=== PATIENT | male | born 1970 | race Caucasian/White ===

== ENCOUNTER 2017-05-02 12:11 | Emergency (ER) | payer BC, OTHER ==
[~2017-05-02] VITALS: Ht 190.5 cm; Wt 199.2 kg
[~2017-05-02 12:11] MED LIST: GEMF600T3 PO; HYDR-3138 PO; LISI-167 PO; METO25TA91 PO
[2017-05-02] MEDS ORDERED: SODIUM CHLORIDE FLUSH 10ML SYR IVF ONE (13:00)
[2017-05-02 13:04] LABS: BLOOD UREA NITROGEN 7 mg/dL (7-18)
[2017-05-02 13:09] LABS: IS PT STATUS REG ER OR PRE ER? YES
[2017-05-02] MEDS ORDERED: PIPERACILLIN/TAZO/PMX 3.375GM 50 ML ONE (14:55)
[2017-05-02] MEDS ORDERED: PIPERACILLIN/TAZO/PMX 3.375GM 50 ML IVPB ONE (15:00)
[2017-05-02 16:47] VITALS: BP 139/76
== END 2017-05-02 16:50 | disposition home or self-care (01) ==
LOC: ED 16:35
DX: L03.115 Cellulitis of right lower limb (principal); I50.9 Heart failure, unspecified; I48.92 Unspecified atrial flutter; E66.01 Morbid (severe) obesity due to excess calories
CPT/HCPCS: 36415; 71010; 80048; 82040; 83605; 83880; 84145; 84484; 85025; 87040; 93005; 93971; 96365; 99285; J2543

== ENCOUNTER 2017-08-27 14:52 | Emergency (ER) | payer OTHER ==
[~2017-08-27] VITALS: Ht 190.5 cm; Wt 185.0 kg
[~2017-08-27 14:52] MED LIST changes: -HYDR-3138 PO; +HYDR-3237 PO
[2017-08-27] MEDS ORDERED: SODIUM CHLORIDE 0.9% 1,000 ML IV ONE (15:36)
[2017-08-27] MEDS ORDERED: ONDANSETRON 2MG/ML, 2ML ONE (15:44)
[2017-08-27] MEDS ORDERED: HYDROmorphone 1 MG/ML, 1ML ONE ×2 (15:44→16:17)
[2017-08-27] MEDS: HYDROmorphone 1 MG/ML, 1ML IVPush PRN ×2 (15:50→16:21)
[2017-08-27] MEDS ORDERED: SODIUM CHLORIDE 0.9% 1,000ML IVBOLUS ONE (16:00)
[2017-08-27] MEDS ORDERED: ONDANSETRON 2MG/ML, 2ML IVPush ONE (16:00)
[2017-08-27] MEDS ORDERED: SODIUM CHLORIDE FLUSH 10ML SYR IVF ONE (16:00)
[2017-08-27 16:07] LABS: HEMATOCRIT 45.9 % (39.2-51.8); HEMOGLOBIN 15.9 g/dL (13.7-18.0); WHITE BLOOD COUNT 12.3 x10^3/uL (3.4-10)
[2017-08-27 16:20] LABS: ASPARTATE AMINO TRANSFERASE 22 U/L (15-37); BLOOD UREA NITROGEN 15 mg/dL (7-18)
[2017-08-27] MEDS ORDERED: LORazepam 1MG TABLET PO ONE (17:00)
[2017-08-27 18:53] VITALS: BP 143/58
== END 2017-08-27 18:55 | disposition home or self-care (01) ==
LOC: ED 18:12
DX: N20.2 Calculus of kidney with calculus of ureter (principal); R31.9 Hematuria, unspecified; I50.9 Heart failure, unspecified; E66.01 Morbid (severe) obesity due to excess calories
CPT/HCPCS: 36415; 74176; 80053; 81001; 83690; 84484; 85025; 93005; 96361; 96374; 96375; 96376; 99285; J1170; J2405; J7030

== ENCOUNTER 2021-05-30 23:16 | Inpatient (IN) | payer BC, OTHER ==
[~2021-05-30] VITALS: Ht 190.5 cm; Wt 161.1 kg
[~2021-05-30 23:16] MED LIST changes: +GEMF-31 PO; -GEMF600T3 PO
[2021-05-31 00:31] LABS: BASOPHILS % (AUTO) 0 % (0-1); EOSINOPHILS % (AUTO) 0 % (1-7); LYMPHOCYTES % (AUTO) 18 % (22-44); MEAN CORPUSCULAR HEMOGLOBIN 30.3 pg (27.5-34.5); MEAN CORPUSCULAR HGB CONC 35.7 g/dL (33.2-36.2); MEAN PLATELET VOLUME 8.7 fL (7.4-10.4); MONOCYTES % (AUTO) 9 % (2-9); NEUTROPHILS % (AUTO) 73 % (42-75); PLATELET COUNT 179 x10^3/uL (130-400); RED BLOOD COUNT 5.17 x10^6/uL (4.38-5.82); RED CELL DISTRIBUTION WIDTH 12.7 % (9.4-14.8)
[2021-05-31 01:17] LABS: ALBUMIN 2.9 g/dL (3.4-5.0); ANION GAP 10 mmol/L (5-15); CALCIUM 8.4 mg/dL (8.5-10.1); CHLORIDE 91 mmol/L (98-107); CREATININE 0.99 mg/dL (0.7-1.3)
[2021-05-31 01:21] LABS: TROPONIN I < 0.015 ng/mL (0.000-0.045)
[2021-05-31 02:55] VITALS: BP 128/77
[2021-05-31] MEDS ORDERED: METF10007 PO (03:55)
[2021-05-31] MEDS ORDERED: ONDANSETRON 2MG/ML, 2ML IVPush PRN (04:30)
[2021-05-31] MEDS ORDERED: PHARMACY MAY ADJ FOR RENAL FX MC PRN ×2 (04:30)
[2021-05-31] MEDS: ENOXAPARIN 100 MG/ML SQ SCH ×2 (06:13→16:55)
[2021-05-31] MEDS: ENOXAPARIN 80 MG/0.8 ML SQ SCH ×2 (06:13→16:56)
[2021-05-31 06:14] LABS: HCT (SEDRATE) 41.4 % (39.2-51.8)
[2021-05-31] MEDS: CEFTRIAXONE 1,000 MG in DEXTROSE 5% 50 ML IVPB SCH (06:14)
[2021-05-31 06:18] LABS: BASOPHILS % (AUTO) 0 % (0-1); EOSINOPHILS % (AUTO) 0 % (1-7); LYMPHOCYTES % (AUTO) 21 % (22-44); MEAN CORPUSCULAR HEMOGLOBIN 30.4 pg (27.5-34.5); MEAN CORPUSCULAR HGB CONC 36.2 g/dL (33.2-36.2); MEAN PLATELET VOLUME 8.8 fL (7.4-10.4); MONOCYTES % (AUTO) 9 % (2-9); NEUTROPHILS % (AUTO) 70 % (42-75); PLATELET COUNT 173 x10^3/uL (130-400); RED BLOOD COUNT 4.88 x10^6/uL (4.38-5.82); RED CELL DISTRIBUTION WIDTH 13.1 % (9.4-14.8)
[2021-05-31] MEDS: ACETAMINOPHEN 325 MG TABLET PO PRN (06:20)
[2021-05-31 06:28] LABS: D-DIMER 0.75 ug/mlFEU (0.00-0.52)
[2021-05-31] MEDS: AZITHROMYCIN 500 MG in SODIUM CHLORIDE 0.9% 250 ML IV SCH (07:58)
[2021-05-31] MEDS: ASCORBIC ACID 500 MG TABLET PO SCH ×2 (07:58→21:16)
[2021-05-31] MEDS: ALBUTEROL-IPRATROPIUM MDI INH INH SCH ×4 (08:00→21:00)
[2021-05-31 08:02] VITALS: BP 108/66
[2021-05-31] MEDS ORDERED: ASCORBIC ACID 500 MG TABLET PO SCH (09:00)
[2021-05-31 11:40] LABS: ALANINE AMINOTRANSFERASE 48 U/L (12-78); ALBUMIN 2.7 g/dL (3.4-5.0); ANION GAP 11 mmol/L (5-15); CALCIUM 8.2 mg/dL (8.5-10.1); CHLORIDE 94 mmol/L (98-107)
[2021-05-31 11:43] LABS: ALKALINE PHOSPHATASE 41 U/L (45-117); BILIRUBIN,TOTAL 0.8 mg/dL (0.2-1.0); CREATININE 0.82 mg/dL (0.7-1.3); TOTAL PROTEIN 7.7 g/dL (6.4-8.2)
[2021-05-31] MEDS ORDERED: POTASSIUM CHLORIDE 20 MEQ TAB.ER.PRT PO ONE (12:30)
[2021-05-31] MEDS: DEXAMETHASONE 4 MG/ML, 1ML IVPush SCH (12:33)
[2021-05-31] MEDS ORDERED: REMDESIVIR 200 MG in SODIUM CHLORIDE 0.9% 250 ML IVPB ONE (14:00)
[2021-05-31 14:35] VITALS: BP 128/70
[2021-05-31] MEDS: MELATONIN 5 MG TABLET PO PRN (21:16)
[2021-05-31 21:20] VITALS: BP 123/76
[2021-05-31] MEDS: INSULIN LISPRO 100 UNITS/ML, PEN SQ-INSULIN SCH (22:51)
[2021-06-01 01:05] VITALS: BP 118/67
[2021-06-01] MEDS: ENOXAPARIN 80 MG/0.8 ML SQ SCH ×2 (05:00→16:11)
[2021-06-01] MEDS: ENOXAPARIN 100 MG/ML SQ SCH ×2 (05:00→16:11)
[2021-06-01 06:01] LABS: HCT (SEDRATE) 42.1 % (39.2-51.8)
[2021-06-01] MEDS: ALBUTEROL-IPRATROPIUM MDI INH INH SCH ×4 (06:06→21:00)
[2021-06-01] MEDS: CEFTRIAXONE 1,000 MG in DEXTROSE 5% 50 ML IVPB SCH (06:06)
[2021-06-01] MEDS: GUAIFENESIN/DM 200-20MG, 10ML UDC PO PRN (06:10)
[2021-06-01 06:26] LABS: ALANINE AMINOTRANSFERASE 44 U/L (12-78); ALBUMIN 2.5 g/dL (3.4-5.0); ANION GAP 7 mmol/L (5-15); CHLORIDE 95 mmol/L (98-107)
[2021-06-01 06:43] LABS: ALKALINE PHOSPHATASE 43 U/L (45-117); BILIRUBIN,TOTAL 0.7 mg/dL (0.2-1.0); CALCIUM 8.6 mg/dL (8.5-10.1); CHOL/HDL RATIO 2.4; CHOLESTEROL, TOTAL 97 mg/dL (140-239); CREATININE 0.93 mg/dL (0.7-1.3); HDL CHOL % 41 % (26-37); HDL CHOLESTEROL (DIRECT) 40 mg/dL (40-60); LDL CHOLESTEROL,CALCULATED 42 mg/dL (54-169); LDL/HDL RATIO 1.1 (0.5-3.0); TOTAL PROTEIN 7.7 g/dL (6.4-8.2); TRIGLYCERIDES 73 mg/dL (50-200); VLDL CHOLESTEROL 15 mg/dL (0-25)
[2021-06-01 07:41] VITALS: BP 117/74
[2021-06-01] MEDS: AZITHROMYCIN 500 MG in SODIUM CHLORIDE 0.9% 250 ML IV SCH (07:42)
[2021-06-01] MEDS: DEXAMETHASONE 4 MG/ML, 1ML IVPush SCH (07:42)
[2021-06-01] MEDS: ASCORBIC ACID 500 MG TABLET PO SCH ×2 (07:42→21:35)
[2021-06-01] MEDS: INSULIN LISPRO 100 UNITS/ML, PEN SQ-INSULIN SCH ×4 (07:45→21:56)
[2021-06-01] MEDS ORDERED: INSULIN LISPRO 100 UNITS/ML, PEN SQ-INSULIN SCH (12:30)
[2021-06-01 13:53] VITALS: BP 127/72
[2021-06-01] MEDS: REMDESIVIR 100 MG in SODIUM CHLORIDE 0.9% 250 ML IVPB SCH (14:38)
[2021-06-01 21:29] VITALS: BP 119/80
[2021-06-01] MEDS: MELATONIN 5 MG TABLET PO PRN (21:36)
[2021-06-02 01:26] VITALS: BP 102/67
[2021-06-02] MEDS: ENOXAPARIN 80 MG/0.8 ML SQ SCH ×2 (04:22→16:56)
[2021-06-02] MEDS: ENOXAPARIN 100 MG/ML SQ SCH ×2 (04:22→16:56)
[2021-06-02] MEDS: GUAIFENESIN/DM 200-20MG, 10ML UDC PO PRN ×2 (04:32→20:48)
[2021-06-02 05:36] LABS: HCT (SEDRATE) 43.6 % (39.2-51.8)
[2021-06-02 05:47] LABS: CHLORIDE 95 mmol/L (98-107)
[2021-06-02 05:50] LABS: BASOPHILS % (AUTO) 0 % (0-1); EOSINOPHILS % (AUTO) 0 % (1-7); LYMPHOCYTES % (AUTO) 8 % (22-44); MEAN CORPUSCULAR HEMOGLOBIN 30.2 pg (27.5-34.5); MEAN CORPUSCULAR HGB CONC 35.5 g/dL (33.2-36.2); MEAN PLATELET VOLUME 8.9 fL (7.4-10.4); MONOCYTES % (AUTO) 10 % (2-9); NEUTROPHILS % (AUTO) 82 % (42-75); PLATELET COUNT 246 x10^3/uL (130-400); RED BLOOD COUNT 5.12 x10^6/uL (4.38-5.82); RED CELL DISTRIBUTION WIDTH 13.5 % (9.4-14.8)
[2021-06-02 05:59] LABS: ALANINE AMINOTRANSFERASE 40 U/L (12-78); ALBUMIN 2.3 g/dL (3.4-5.0); ALKALINE PHOSPHATASE 42 U/L (45-117); ANION GAP 6 mmol/L (5-15); BILIRUBIN,TOTAL 0.7 mg/dL (0.2-1.0); CALCIUM 8.5 mg/dL (8.5-10.1); CREATININE 0.85 mg/dL (0.7-1.3); TOTAL PROTEIN 7.6 g/dL (6.4-8.2)
[2021-06-02] MEDS: CEFTRIAXONE 1,000 MG in DEXTROSE 5% 50 ML IVPB SCH (06:14)
[2021-06-02] MEDS: ALBUTEROL-IPRATROPIUM MDI INH INH SCH ×4 (06:15→20:34)
[2021-06-02] MEDS: AZITHROMYCIN 500 MG in SODIUM CHLORIDE 0.9% 250 ML IV SCH (07:52)
[2021-06-02] MEDS: ASCORBIC ACID 500 MG TABLET PO SCH ×2 (07:52→20:34)
[2021-06-02] MEDS: DEXAMETHASONE 4 MG/ML, 1ML IVPush SCH (07:53)
[2021-06-02] MEDS: INSULIN LISPRO 100 UNITS/ML, PEN SQ-INSULIN SCH ×4 (07:55→20:49)
[2021-06-02] MEDS: INSULIN GLARGINE 100 UNITS/ML, PEN SQ-INSULIN SCH ×2 (09:39→20:50)
[2021-06-02 09:49] VITALS: BP 106/67
[2021-06-02 14:21] LABS: ANION GAP 6 mmol/L (5-15); CALCIUM 8.7 mg/dL (8.5-10.1); CHLORIDE 94 mmol/L (98-107)
[2021-06-02] MEDS: REMDESIVIR 100 MG in SODIUM CHLORIDE 0.9% 250 ML IVPB SCH (14:28)
[2021-06-02 14:30] VITALS: BP 124/76
[2021-06-02] MEDS ORDERED: RIVAROXABAN 15 MG TABLET PO SCH (18:00)
[2021-06-02] MEDS ORDERED: RIVAROXABAN 20 MG TABLET PO SCH (18:01)
[2021-06-02] MEDS: RIVAROXABAN 20 MG TABLET PO SCH (18:21)
[2021-06-02 19:17] VITALS: BP 124/79
[2021-06-02] MEDS: MELATONIN 5 MG TABLET PO PRN (20:48)
[2021-06-03 01:20] VITALS: BP 122/60
[2021-06-03 05:55] LABS: HCT (SEDRATE) 44.6 % (39.2-51.8)
[2021-06-03] MEDS: ALBUTEROL-IPRATROPIUM MDI INH INH SCH ×4 (06:00→20:44)
[2021-06-03] MEDS: CEFTRIAXONE 1,000 MG in DEXTROSE 5% 50 ML IVPB SCH (06:05)
[2021-06-03 06:14] LABS: CALCIUM 8.6 mg/dL (8.5-10.1); CHLORIDE 100 mmol/L (98-107)
[2021-06-03 06:26] LABS: ALANINE AMINOTRANSFERASE 38 U/L (12-78); ALBUMIN 2.3 g/dL (3.4-5.0); ALKALINE PHOSPHATASE 47 U/L (45-117); ANION GAP 6 mmol/L (5-15); BILIRUBIN,TOTAL 0.7 mg/dL (0.2-1.0); CREATININE 0.77 mg/dL (0.7-1.3); TOTAL PROTEIN 7.4 g/dL (6.4-8.2)
[2021-06-03] MEDS: AZITHROMYCIN 500 MG in SODIUM CHLORIDE 0.9% 250 ML IV SCH (06:40)
[2021-06-03 07:08] VITALS: BP 117/75
[2021-06-03 08:05] VITALS: BP 132/83
[2021-06-03] MEDS: INSULIN GLARGINE 100 UNITS/ML, PEN SQ-INSULIN SCH ×2 (08:19→20:43)
[2021-06-03] MEDS: INSULIN LISPRO 100 UNITS/ML, PEN SQ-INSULIN SCH ×4 (08:19→20:43)
[2021-06-03] MEDS: ASCORBIC ACID 500 MG TABLET PO SCH ×2 (08:20→20:41)
[2021-06-03] MEDS: DEXAMETHASONE 4 MG/ML, 1ML IVPush SCH (08:20)
[2021-06-03] MEDS ORDERED: FUROSEMIDE 20 MG/2 ML IV ONE (10:28)
[2021-06-03] MEDS: POTASSIUM CHLORIDE 20 MEQ TAB.ER.PRT PO SCH (12:16)
[2021-06-03 13:35] VITALS: BP 131/84
[2021-06-03] MEDS: REMDESIVIR 100 MG in SODIUM CHLORIDE 0.9% 250 ML IVPB SCH (14:01)
[2021-06-03] MEDS: FUROSEMIDE 20 MG/2 ML IV SCH (16:47)
[2021-06-03] MEDS: RIVAROXABAN 20 MG TABLET PO SCH (16:47)
[2021-06-03 20:31] VITALS: BP 132/78
[2021-06-03] MEDS: MELATONIN 5 MG TABLET PO PRN (20:42)
[2021-06-03] MEDS: GUAIFENESIN/DM 200-20MG, 10ML UDC PO PRN (20:42)
[2021-06-04 01:33] VITALS: BP 129/77
[2021-06-04 04:31] VITALS: BP 138/85
[2021-06-04] MEDS ORDERED: NITROGLYCERIN 0.4 MG BOTTLE (25 TABS) SL ONE (05:30)
[2021-06-04] MEDS ORDERED: MORPHINE SULFATE 4 MG/ML, 1ML IVPush ONE (05:30)
[2021-06-04] MEDS: ALBUTEROL-IPRATROPIUM MDI INH INH SCH ×4 (06:00→21:50)
[2021-06-04 06:14] LABS: HCT (SEDRATE) 45.2 % (39.2-51.8)
[2021-06-04 06:29] LABS: ALBUMIN 2.5 g/dL (3.4-5.0); ANION GAP 6 mmol/L (5-15); CALCIUM 8.7 mg/dL (8.5-10.1); CHLORIDE 100 mmol/L (98-107)
[2021-06-04] MEDS: CEFTRIAXONE 1,000 MG in DEXTROSE 5% 50 ML IVPB SCH (06:34)
[2021-06-04 06:41] LABS: ALANINE AMINOTRANSFERASE 37 U/L (12-78); ALKALINE PHOSPHATASE 57 U/L (45-117); CREATININE 0.81 mg/dL (0.7-1.3); TOTAL PROTEIN 7.7 g/dL (6.4-8.2)
[2021-06-04] MEDS: INSULIN LISPRO 100 UNITS/ML, PEN SQ-INSULIN SCH ×4 (07:00→21:52)
[2021-06-04] MEDS ORDERED: ATORVASTATIN 80 MG TABLET PO ONE (07:28)
[2021-06-04] MEDS ORDERED: MIDAZOLAM 1 MG/ML, 5ML ONE (07:43)
[2021-06-04] MEDS ORDERED: LIDOCAINE-MPF 1%, 5ML ONE (07:44)
[2021-06-04] MEDS ORDERED: BIVALIRUDIN 250 MG ONE (07:44)
[2021-06-04] MEDS ORDERED: TICAGRELOR 90 MG TABLET ONE (07:44)
[2021-06-04] MEDS ORDERED: NITROGLYCERIN 5 MG/ML, 10ML ONE (07:44)
[2021-06-04] MEDS ORDERED: VERAPAMIL 2.5 MG/ML, 2ML ONE (07:44)
[2021-06-04] MEDS ORDERED: FENTANYL PF 100 MCG/2ML ONE ×2 (07:44→10:38)
[2021-06-04] MEDS ORDERED: HEPARIN 1,000 UNITS/ML, 10ML ONE (07:44)
[2021-06-04 07:56] VITALS: BP 127/78
[2021-06-04] MEDS ORDERED: ALTEPLASE IV ONE (08:30)
[2021-06-04] MEDS: ASCORBIC ACID 500 MG TABLET PO SCH ×2 (09:00→21:57)
[2021-06-04] MEDS ORDERED: HEPARIN 25,000 UNITS/250ML PMX 250 ML IV PRN (09:00)
[2021-06-04] MEDS ORDERED: HEPARIN 5,000 UNITS/ML, 1ML IV ONE ×2 (09:00)
[2021-06-04] MEDS ORDERED: HEPARIN 5,000 UNITS/ML, 1ML IV PRN (09:00)
[2021-06-04] MEDS: ALTEPLASE IV PRN ×2 (09:28→09:30)
[2021-06-04] MEDS: AZITHROMYCIN 500 MG in SODIUM CHLORIDE 0.9% 250 ML IV SCH (10:57)
[2021-06-04] MEDS: PHENYLEPHRINE NASAL 1%, 15ML SPRAY NAS SCH ×2 (10:58→14:27)
[2021-06-04] MEDS ORDERED: FENTANYL PF 100 MCG/2ML IVPush ONE (11:00)
[2021-06-04] MEDS: INSULIN GLARGINE 100 UNITS/ML, PEN SQ-INSULIN SCH ×2 (11:05→21:52)
[2021-06-04] MEDS: DEXAMETHASONE 4 MG/ML, 1ML IVPush SCH (11:11)
[2021-06-04] MEDS: POTASSIUM CHLORIDE 20 MEQ TAB.ER.PRT PO SCH (11:11)
[2021-06-04] MEDS: FUROSEMIDE 20 MG/2 ML IV SCH (11:11)
[2021-06-04] MEDS: REMDESIVIR 100 MG in SODIUM CHLORIDE 0.9% 250 ML IVPB SCH (12:18)
[2021-06-04] MEDS ORDERED: CEFTRIAXONE 1,000 MG in DEXTROSE 5% 50 ML IVPB ONE (12:30)
[2021-06-04] MEDS: CHOLECALCIFEROL 1,000 UNIT TABLET PO SCH (14:46)
[2021-06-04] MEDS: ZINC SULFATE 220 MG CAPSULE PO SCH (14:46)
[2021-06-04] MEDS ORDERED: FUROSEMIDE 20 MG/2 ML IV SCH (17:00)
[2021-06-04] MEDS ORDERED: PHENYLEPHRINE NASAL 1%, 15ML SPRAY NAS PRN (21:00)
[2021-06-04] MEDS: FUROSEMIDE 40 MG/4 ML IV SCH (21:50)
[2021-06-04] MEDS: FENTANYL PF 100 MCG/2ML IVPush PRN (21:56)
[2021-06-04] MEDS: THIAMINE 100MG TABLET PO SCH (21:57)
[2021-06-04] MEDS: ATORVASTATIN 80 MG TABLET PO SCH (21:57)
[2021-06-04] MEDS: MELATONIN 5 MG TABLET PO PRN (21:57)
[2021-06-05] MEDS: GUAIFENESIN/DM 200-20MG, 10ML UDC PO PRN (01:25)
[2021-06-05] MEDS: FENTANYL PF 100 MCG/2ML IVPush PRN ×2 (01:26→05:50)
[2021-06-05 04:50] LABS: BASOPHILS % (AUTO) 0 % (0-1); EOSINOPHILS % (AUTO) 0 % (1-7); LYMPHOCYTES % (AUTO) 7 % (22-44); MEAN CORPUSCULAR HEMOGLOBIN 29.7 pg (27.5-34.5); MEAN CORPUSCULAR HGB CONC 34.4 g/dL (33.2-36.2); MEAN PLATELET VOLUME 7.7 fL (7.4-10.4); MONOCYTES % (AUTO) 8 % (2-9); NEUTROPHILS % (AUTO) 85 % (42-75); PLATELET COUNT 176 x10^3/uL (130-400); RED BLOOD COUNT 5.21 x10^6/uL (4.38-5.82); RED CELL DISTRIBUTION WIDTH 13.5 % (9.4-14.8)
[2021-06-05 04:57] LABS: ALANINE AMINOTRANSFERASE 33 U/L (12-78); ALBUMIN 2.4 g/dL (3.4-5.0); ANION GAP 8 mmol/L (5-15); CALCIUM 8.8 mg/dL (8.5-10.1); CHLORIDE 101 mmol/L (98-107); CREATININE 0.64 mg/dL (0.7-1.3)
[2021-06-05 05:01] LABS: ALKALINE PHOSPHATASE 56 U/L (45-117); BILIRUBIN,TOTAL 0.8 mg/dL (0.2-1.0)
[2021-06-05] MEDS: AZITHROMYCIN 500 MG in SODIUM CHLORIDE 0.9% 250 ML IV SCH (05:47)
[2021-06-05] MEDS: ALBUTEROL-IPRATROPIUM MDI INH INH SCH ×4 (05:47→21:03)
[2021-06-05] MEDS: ASPIRIN 81 MG TABLET EC PO SCH (05:49)
[2021-06-05] MEDS: INSULIN LISPRO 100 UNITS/ML, PEN SQ-INSULIN SCH ×4 (05:51→21:04)
[2021-06-05] MEDS: INSULIN GLARGINE 100 UNITS/ML, PEN SQ-INSULIN SCH ×2 (09:02→21:05)
[2021-06-05] MEDS: DEXAMETHASONE 4 MG/ML, 1ML IVPush SCH (09:03)
[2021-06-05] MEDS: FUROSEMIDE 40 MG/4 ML IV SCH ×2 (09:03→21:00)
[2021-06-05] MEDS: POTASSIUM CHLORIDE 20 MEQ TAB.ER.PRT PO SCH (09:03)
[2021-06-05] MEDS: CHOLECALCIFEROL 1,000 UNIT TABLET PO SCH (09:04)
[2021-06-05] MEDS: CLOPIDOGREL 75 MG TABLET PO SCH (09:04)
[2021-06-05] MEDS: THIAMINE 100MG TABLET PO SCH ×2 (09:04→21:02)
[2021-06-05] MEDS: ZINC SULFATE 220 MG CAPSULE PO SCH (09:04)
[2021-06-05] MEDS: ASCORBIC ACID 500 MG TABLET PO SCH ×2 (09:04→21:02)
[2021-06-05] MEDS ORDERED: OXYcodone IR 5MG TABLET PO PRN (10:00)
[2021-06-05] MEDS: METOPROLOL SUCCINATE 25 MG TAB.ER.24H PO SCH (12:19)
[2021-06-05] MEDS: CEFTRIAXONE 2 GM in DEXTROSE 5% 50 ML IVPB SCH (12:19)
[2021-06-05] MEDS: ATORVASTATIN 80 MG TABLET PO SCH (21:02)
[2021-06-05] MEDS: MELATONIN 5 MG TABLET PO PRN (21:10)
[2021-06-06] MEDS ORDERED: FILTER 0.22 MICRON IV PRN
[2021-06-06] MEDS ORDERED: AMIODARONE 450 MG in DEXTROSE 5% 241 ML IV PRN
[2021-06-06] MEDS ORDERED: AMIODARONE 150 MG in DEXTROSE 5% 97 ML IVPB ONE
[2021-06-06] MEDS ORDERED: SODIUM CHLORIDE 0.9%, 500ML IVBOLUS ONE (00:30)
[2021-06-06] MEDS: HEPARIN 5,000 UNITS/ML, 1ML IV PRN ×4 (00:50→23:51)
[2021-06-06] MEDS: HEPARIN 25,000 UNITS/250ML PMX 250 ML IV PRN ×2 (00:54→17:00)
[2021-06-06] MEDS: GUAIFENESIN/DM 200-20MG, 10ML UDC PO PRN (01:06)
[2021-06-06] MEDS: LORazepam 2 MG/ML, 1ML IVPush PRN ×2 (01:17→08:10)
[2021-06-06] MEDS ORDERED: DIGOXIN 0.25 MG/ML, 2ML IVPush ONE (04:30)
[2021-06-06 07:39] LABS: ANION GAP 9 mmol/L (5-15); CALCIUM 8.3 mg/dL (8.5-10.1); CHLORIDE 101 mmol/L (98-107); CREATININE 0.77 mg/dL (0.7-1.3)
[2021-06-06 07:41] LABS: BASOPHILS % (AUTO) 0 % (0-1); EOSINOPHILS % (AUTO) 1 % (1-7); LYMPHOCYTES % (AUTO) 8 % (22-44); MEAN CORPUSCULAR HEMOGLOBIN 29.2 pg (27.5-34.5); MEAN CORPUSCULAR HGB CONC 33.9 g/dL (33.2-36.2); MONOCYTES % (AUTO) 7 % (2-9); NEUTROPHILS % (AUTO) 84 % (42-75); PLATELET COUNT 203 x10^3/uL (130-400); RED BLOOD COUNT 5.27 x10^6/uL (4.38-5.82); RED CELL DISTRIBUTION WIDTH 13.4 % (9.4-14.8)
[2021-06-06] MEDS: AZITHROMYCIN 500 MG in SODIUM CHLORIDE 0.9% 250 ML IV SCH (09:21)
[2021-06-06] MEDS: CLOPIDOGREL 75 MG TABLET PO SCH (09:23)
[2021-06-06] MEDS: DEXAMETHASONE 4 MG/ML, 1ML IVPush SCH (09:23)
[2021-06-06] MEDS: THIAMINE 100MG TABLET PO SCH ×2 (09:23→20:51)
[2021-06-06] MEDS: ASCORBIC ACID 500 MG TABLET PO SCH ×2 (09:23→20:51)
[2021-06-06] MEDS: FUROSEMIDE 40 MG/4 ML IV SCH ×2 (09:23→20:51)
[2021-06-06] MEDS: ALBUTEROL-IPRATROPIUM MDI INH INH SCH ×4 (09:23→20:52)
[2021-06-06] MEDS: ASPIRIN 81 MG TABLET EC PO SCH (09:23)
[2021-06-06] MEDS: ZINC SULFATE 220 MG CAPSULE PO SCH (09:23)
[2021-06-06] MEDS: CHOLECALCIFEROL 1,000 UNIT TABLET PO SCH (09:24)
[2021-06-06] MEDS: POTASSIUM CHLORIDE 20 MEQ TAB.ER.PRT PO SCH (09:24)
[2021-06-06] MEDS: METOPROLOL SUCCINATE 25 MG TAB.ER.24H PO SCH (09:24)
[2021-06-06] MEDS: INSULIN LISPRO 100 UNITS/ML, PEN SQ-INSULIN SCH ×5 (09:26→20:54)
[2021-06-06] MEDS: INSULIN GLARGINE 100 UNITS/ML, PEN SQ-INSULIN SCH (09:27)
[2021-06-06] MEDS: LOSARTAN 25MG TABLET PO SCH (12:06)
[2021-06-06] MEDS: AMIODARONE 200 MG TABLET PO SCH ×2 (12:06→20:50)
[2021-06-06] MEDS: CEFTRIAXONE 2 GM in DEXTROSE 5% 50 ML IVPB SCH (12:06)
[2021-06-06] MEDS: ATORVASTATIN 80 MG TABLET PO SCH (20:51)
[2021-06-06] MEDS ORDERED: INSULIN GLARGINE 100 UNITS/ML, PEN SQ-INSULIN SCH (21:00)
[2021-06-06] MEDS: MELATONIN 5 MG TABLET PO PRN (21:01)
[2021-06-07] MEDS: LORazepam 2 MG/ML, 1ML IVPush PRN ×2 (00:52→22:16)
[2021-06-07] MEDS: ALBUTEROL-IPRATROPIUM MDI INH INH SCH ×4 (05:52→20:58)
[2021-06-07] MEDS: ASPIRIN 81 MG TABLET EC PO SCH (05:54)
[2021-06-07 05:58] LABS: BASOPHILS % (AUTO) 1 % (0-1); EOSINOPHILS % (AUTO) 1 % (1-7); LYMPHOCYTES % (AUTO) 7 % (22-44); MEAN CORPUSCULAR HEMOGLOBIN 29.3 pg (27.5-34.5); MEAN CORPUSCULAR HGB CONC 34.1 g/dL (33.2-36.2); MONOCYTES % (AUTO) 6 % (2-9); NEUTROPHILS % (AUTO) 85 % (42-75); PLATELET COUNT 213 x10^3/uL (130-400); RED BLOOD COUNT 4.86 x10^6/uL (4.38-5.82); RED CELL DISTRIBUTION WIDTH 13.3 % (9.4-14.8)
[2021-06-07] MEDS: METOPROLOL SUCCINATE 25 MG TAB.ER.24H PO SCH (06:00)
[2021-06-07 06:11] LABS: CHLORIDE 99 mmol/L (98-107)
[2021-06-07 06:20] LABS: ANION GAP 3 mmol/L (5-15); CALCIUM 8.5 mg/dL (8.5-10.1); CREATININE 0.77 mg/dL (0.7-1.3)
[2021-06-07] MEDS: AZITHROMYCIN 500 MG in SODIUM CHLORIDE 0.9% 250 ML IV SCH (08:56)
[2021-06-07] MEDS: CLOPIDOGREL 75 MG TABLET PO SCH (08:57)
[2021-06-07] MEDS: THIAMINE 100MG TABLET PO SCH ×2 (08:57→20:57)
[2021-06-07] MEDS: CHOLECALCIFEROL 1,000 UNIT TABLET PO SCH (08:57)
[2021-06-07] MEDS: FUROSEMIDE 40 MG/4 ML IV SCH ×2 (08:57→20:58)
[2021-06-07] MEDS: HEPARIN 25,000 UNITS/250ML PMX 250 ML IV PRN ×2 (08:57→23:12)
[2021-06-07] MEDS: DEXAMETHASONE 4 MG/ML, 1ML IVPush SCH (08:58)
[2021-06-07] MEDS: ZINC SULFATE 220 MG CAPSULE PO SCH (08:58)
[2021-06-07] MEDS: AMIODARONE 200 MG TABLET PO SCH (08:58)
[2021-06-07] MEDS: POTASSIUM CHLORIDE 20 MEQ TAB.ER.PRT PO SCH (08:58)
[2021-06-07] MEDS: LOSARTAN 25MG TABLET PO SCH (08:59)
[2021-06-07] MEDS: ASCORBIC ACID 500 MG TABLET PO SCH ×2 (09:06→20:57)
[2021-06-07] MEDS: INSULIN LISPRO 100 UNITS/ML, PEN SQ-INSULIN SCH ×7 (09:08→21:05)
[2021-06-07] MEDS: INSULIN GLARGINE 100 UNITS/ML, PEN SQ-INSULIN SCH ×2 (09:09→21:04)
[2021-06-07] MEDS: CEFTRIAXONE 2 GM in DEXTROSE 5% 50 ML IVPB SCH (11:59)
[2021-06-07] MEDS: HEPARIN 5,000 UNITS/ML, 1ML IV PRN (12:33)
[2021-06-07] MEDS ORDERED: AMIODARONE 200 MG TABLET PO SCH (13:00)
[2021-06-07] MEDS: ATORVASTATIN 80 MG TABLET PO SCH (20:57)
[2021-06-07] MEDS: MELATONIN 5 MG TABLET PO PRN (22:16)
[2021-06-08] MEDS: METOPROLOL SUCCINATE 25 MG TAB.ER.24H PO SCH (05:25)
[2021-06-08] MEDS: ASPIRIN 81 MG TABLET EC PO SCH (05:32)
[2021-06-08] MEDS: ALBUTEROL-IPRATROPIUM MDI INH INH SCH ×4 (05:32→20:20)
[2021-06-08 05:57] LABS: ANION GAP 6 mmol/L (5-15); CALCIUM 8.6 mg/dL (8.5-10.1); CHLORIDE 101 mmol/L (98-107); CREATININE 0.74 mg/dL (0.7-1.3)
[2021-06-08] MEDS: INSULIN LISPRO 100 UNITS/ML, PEN SQ-INSULIN SCH ×7 (08:27→20:22)
[2021-06-08] MEDS: FUROSEMIDE 40 MG/4 ML IV SCH ×2 (08:31→20:23)
[2021-06-08] MEDS: ASCORBIC ACID 500 MG TABLET PO SCH ×2 (08:32→20:21)
[2021-06-08] MEDS: POTASSIUM CHLORIDE 20 MEQ TAB.ER.PRT PO SCH (08:32)
[2021-06-08] MEDS: CLOPIDOGREL 75 MG TABLET PO SCH (08:32)
[2021-06-08] MEDS: ZINC SULFATE 220 MG CAPSULE PO SCH (08:32)
[2021-06-08] MEDS: DEXAMETHASONE 4 MG/ML, 1ML IVPush SCH (08:32)
[2021-06-08] MEDS: THIAMINE 100MG TABLET PO SCH ×2 (08:32→20:20)
[2021-06-08] MEDS: LOSARTAN 25MG TABLET PO SCH (08:33)
[2021-06-08] MEDS: AZITHROMYCIN 500 MG in SODIUM CHLORIDE 0.9% 250 ML IV SCH (08:34)
[2021-06-08] MEDS ORDERED: INSULIN GLARGINE 100 UNITS/ML, PEN SQ-INSULIN SCH (09:00)
[2021-06-08] MEDS: AMIODARONE 200 MG TABLET PO SCH (09:04)
[2021-06-08] MEDS: CHOLECALCIFEROL 1,000 UNIT TABLET PO SCH (11:41)
[2021-06-08] MEDS: CEFTRIAXONE 2 GM in DEXTROSE 5% 50 ML IVPB SCH (12:49)
[2021-06-08] MEDS: HEPARIN 25,000 UNITS/250ML PMX 250 ML IV PRN (16:55)
[2021-06-08] MEDS: ATORVASTATIN 80 MG TABLET PO SCH (20:20)
[2021-06-08] MEDS: INSULIN GLARGINE 100 UNITS/ML, PEN SQ-INSULIN SCH (20:22)
[2021-06-08] MEDS: MELATONIN 5 MG TABLET PO PRN (23:12)
[2021-06-08] MEDS: LORazepam 2 MG/ML, 1ML IVPush PRN (23:13)
[2021-06-09 04:52] LABS: ANION GAP 5 mmol/L (5-15); CALCIUM 8.4 mg/dL (8.5-10.1); CHLORIDE 99 mmol/L (98-107)
[2021-06-09] MEDS: HEPARIN 25,000 UNITS/250ML PMX 250 ML IV PRN (05:35)
[2021-06-09] MEDS: HEPARIN 5,000 UNITS/ML, 1ML IV PRN (05:35)
[2021-06-09] MEDS: ASPIRIN 81 MG TABLET EC PO SCH (05:35)
[2021-06-09] MEDS: ALBUTEROL-IPRATROPIUM MDI INH INH SCH ×4 (05:35→20:07)
[2021-06-09] MEDS: INSULIN GLARGINE 100 UNITS/ML, PEN SQ-INSULIN SCH ×2 (08:00→20:06)
[2021-06-09] MEDS: INSULIN LISPRO 100 UNITS/ML, PEN SQ-INSULIN SCH ×7 (08:02→20:06)
[2021-06-09] MEDS: FUROSEMIDE 40 MG/4 ML IV SCH ×2 (08:07→20:06)
[2021-06-09] MEDS: LORazepam 2 MG/ML, 1ML IVPush PRN ×2 (08:07→20:47)
[2021-06-09] MEDS: DEXAMETHASONE 4 MG/ML, 1ML IVPush SCH (08:07)
[2021-06-09] MEDS: ZINC SULFATE 220 MG CAPSULE PO SCH (08:08)
[2021-06-09] MEDS: POTASSIUM CHLORIDE 20 MEQ TAB.ER.PRT PO SCH (08:08)
[2021-06-09] MEDS: AMIODARONE 200 MG TABLET PO SCH (08:08)
[2021-06-09] MEDS: THIAMINE 100MG TABLET PO SCH ×2 (08:08→20:07)
[2021-06-09] MEDS: ASCORBIC ACID 500 MG TABLET PO SCH ×2 (08:08→20:06)
[2021-06-09] MEDS: LOSARTAN 25MG TABLET PO SCH (08:08)
[2021-06-09] MEDS: CLOPIDOGREL 75 MG TABLET PO SCH (08:09)
[2021-06-09] MEDS: METOPROLOL SUCCINATE 25 MG TAB.ER.24H PO SCH (10:06)
[2021-06-09] MEDS: CHOLECALCIFEROL 1,000 UNIT TABLET PO SCH (10:07)
[2021-06-09] MEDS: CEFTRIAXONE 2 GM in DEXTROSE 5% 50 ML IVPB SCH (11:47)
[2021-06-09] MEDS: ENOXAPARIN 40 MG/0.4 ML SQ SCH (20:07)
[2021-06-09] MEDS: ATORVASTATIN 80 MG TABLET PO SCH (20:07)
[2021-06-09] MEDS: TEMAZEPAM 15 MG CAPSULE PO PRN (20:47)
[2021-06-10] MEDS: ASPIRIN 81 MG TABLET EC PO SCH (05:41)
[2021-06-10] MEDS: METOPROLOL SUCCINATE 25 MG TAB.ER.24H PO SCH (05:42)
[2021-06-10] MEDS: ALBUTEROL-IPRATROPIUM MDI INH INH SCH ×4 (05:42→20:46)
[2021-06-10] MEDS: INSULIN GLARGINE 100 UNITS/ML, PEN SQ-INSULIN SCH ×2 (07:55→20:52)
[2021-06-10] MEDS: INSULIN LISPRO 100 UNITS/ML, PEN SQ-INSULIN SCH ×7 (07:56→20:52)
[2021-06-10] MEDS: ENOXAPARIN 40 MG/0.4 ML SQ SCH ×2 (07:57→20:48)
[2021-06-10] MEDS: DEXAMETHASONE 4 MG/ML, 1ML IVPush SCH (07:57)
[2021-06-10] MEDS: LORazepam 2 MG/ML, 1ML IVPush PRN ×2 (07:57→22:27)
[2021-06-10] MEDS: ZINC SULFATE 220 MG CAPSULE PO SCH (07:58)
[2021-06-10] MEDS: AMIODARONE 200 MG TABLET PO SCH (07:58)
[2021-06-10] MEDS: FUROSEMIDE 40 MG/4 ML IV SCH ×2 (07:58→20:48)
[2021-06-10] MEDS: THIAMINE 100MG TABLET PO SCH ×2 (07:58→20:46)
[2021-06-10] MEDS: POTASSIUM CHLORIDE 20 MEQ TAB.ER.PRT PO SCH (07:58)
[2021-06-10] MEDS: LOSARTAN 25MG TABLET PO SCH (07:58)
[2021-06-10] MEDS: CLOPIDOGREL 75 MG TABLET PO SCH (08:26)
[2021-06-10] MEDS: ASCORBIC ACID 500 MG TABLET PO SCH ×2 (08:26→20:46)
[2021-06-10] MEDS: CHOLECALCIFEROL 1,000 UNIT TABLET PO SCH (08:29)
[2021-06-10] MEDS: ATORVASTATIN 80 MG TABLET PO SCH (20:46)
[2021-06-10] MEDS: TEMAZEPAM 15 MG CAPSULE PO PRN (22:26)
[2021-06-11 04:42] LABS: MEAN CORPUSCULAR HEMOGLOBIN 29.9 pg (27.5-34.5); MEAN CORPUSCULAR HGB CONC 34.3 g/dL (33.2-36.2); MEAN PLATELET VOLUME 8.1 fL (7.4-10.4); PLATELET COUNT 296 x10^3/uL (130-400); RED BLOOD COUNT 4.94 x10^6/uL (4.38-5.82); RED CELL DISTRIBUTION WIDTH 13.6 % (9.4-14.8)
[2021-06-11 04:55] LABS: ALBUMIN 2.2 g/dL (3.4-5.0); ANION GAP 5 mmol/L (5-15); CHLORIDE 100 mmol/L (98-107)
[2021-06-11 05:02] LABS: ALANINE AMINOTRANSFERASE 24 U/L (12-78); ALKALINE PHOSPHATASE 98 U/L (45-117); BILIRUBIN,TOTAL 0.9 mg/dL (0.2-1.0); CREATININE 0.83 mg/dL (0.7-1.3); TOTAL PROTEIN 7.7 g/dL (6.4-8.2)
[2021-06-11 05:23] LABS: BAND#(MANUAL) 0.21 x10^3/uL; BANDS%(MANUAL) 1 % (0-7); LYMPH#(MANUAL) 2.05 x10^3/uL (1-3.4); LYMPHS% (MANUAL) 10 % (22-44); MONOS#(MANUAL) 0.41 x10^3/uL (0.3-2.7); MONOS% (MANUAL) 2 % (2-9); MYELOCYTES# (MANUAL) 0.21 x10^3/uL (0-0); MYELOCYTES% (MANUAL) 1 % (0-0); SEG#(MANUAL) 17.63 x10^3/uL (1.8-6.8); SEGS% (MANUAL) 86 % (42-75)
[2021-06-11 05:25] LABS: <PLATELET ESTIMATE> ADEQUATE; <PLT MORPHOLOGY> NORMAL PLT MORPH; <RBC MORPHOLOGY> NORMAL
[2021-06-11] MEDS: ALBUTEROL-IPRATROPIUM MDI INH INH SCH ×4 (05:43→20:44)
[2021-06-11] MEDS: METOPROLOL SUCCINATE 25 MG TAB.ER.24H PO SCH (05:44)
[2021-06-11] MEDS: ASPIRIN 81 MG TABLET EC PO SCH (05:44)
[2021-06-11] MEDS: LORazepam 2 MG/ML, 1ML IVPush PRN ×3 (06:36→21:47)
[2021-06-11] MEDS: INSULIN LISPRO 100 UNITS/ML, PEN SQ-INSULIN SCH ×7 (07:00→20:43)
[2021-06-11] MEDS: ENOXAPARIN 40 MG/0.4 ML SQ SCH ×2 (08:01→20:44)
[2021-06-11] MEDS: ZINC SULFATE 220 MG CAPSULE PO SCH (08:01)
[2021-06-11] MEDS: LOSARTAN 25MG TABLET PO SCH (08:02)
[2021-06-11] MEDS: DEXAMETHASONE 4 MG/ML, 1ML IVPush SCH (08:02)
[2021-06-11] MEDS: CLOPIDOGREL 75 MG TABLET PO SCH (08:02)
[2021-06-11] MEDS: POTASSIUM CHLORIDE 20 MEQ TAB.ER.PRT PO SCH (08:02)
[2021-06-11] MEDS: ASCORBIC ACID 500 MG TABLET PO SCH (08:02)
[2021-06-11] MEDS: FUROSEMIDE 40 MG/4 ML IV SCH ×2 (08:02→20:44)
[2021-06-11] MEDS: CHOLECALCIFEROL 1,000 UNIT TABLET PO SCH (08:02)
[2021-06-11] MEDS: AMIODARONE 200 MG TABLET PO SCH (08:03)
[2021-06-11] MEDS: THIAMINE 100MG TABLET PO SCH ×2 (08:03→20:43)
[2021-06-11] MEDS: INSULIN GLARGINE 100 UNITS/ML, PEN SQ-INSULIN SCH ×2 (08:04→20:43)
[2021-06-11] MEDS: ATORVASTATIN 80 MG TABLET PO SCH (20:43)
[2021-06-11] MEDS: TEMAZEPAM 15 MG CAPSULE PO PRN (21:47)
[2021-06-11 21:54] LABS: TROPONIN I 0.967 ng/mL (0.000-0.045)
[2021-06-12] MEDS: LORazepam 2 MG/ML, 1ML IVPush PRN ×3 (03:19→17:42)
[2021-06-12] MEDS: ASPIRIN 81 MG TABLET EC PO SCH (05:42)
[2021-06-12] MEDS: METOPROLOL SUCCINATE 25 MG TAB.ER.24H PO SCH (05:42)
[2021-06-12] MEDS: ALBUTEROL-IPRATROPIUM MDI INH INH SCH ×4 (05:43→20:37)
[2021-06-12] MEDS: INSULIN LISPRO 100 UNITS/ML, PEN SQ-INSULIN SCH ×7 (07:00→20:38)
[2021-06-12] MEDS: CLOPIDOGREL 75 MG TABLET PO SCH (07:52)
[2021-06-12] MEDS: ZINC SULFATE 220 MG CAPSULE PO SCH (07:52)
[2021-06-12] MEDS: CHOLECALCIFEROL 1,000 UNIT TABLET PO SCH (07:53)
[2021-06-12] MEDS: LOSARTAN 25MG TABLET PO SCH (07:53)
[2021-06-12] MEDS: FUROSEMIDE 40 MG/4 ML IV SCH ×2 (07:53→20:37)
[2021-06-12] MEDS: THIAMINE 100MG TABLET PO SCH ×2 (07:53→20:38)
[2021-06-12] MEDS: AMIODARONE 200 MG TABLET PO SCH (07:54)
[2021-06-12] MEDS: POTASSIUM CHLORIDE 20 MEQ TAB.ER.PRT PO SCH (07:54)
[2021-06-12] MEDS: ENOXAPARIN 40 MG/0.4 ML SQ SCH (08:02)
[2021-06-12] MEDS: ENOXAPARIN 60 MG/0.6 ML SQ SCH (17:43)
[2021-06-12] MEDS: ATORVASTATIN 80 MG TABLET PO SCH (20:38)
[2021-06-12] MEDS: TEMAZEPAM 15 MG CAPSULE PO PRN (22:38)
[2021-06-13] MEDS: LORazepam 2 MG/ML, 1ML IVPush PRN (01:10)
[2021-06-13] MEDS ORDERED: ETOMIDATE 20 MG/10 ML ONE (03:07)
[2021-06-13] MEDS ORDERED: SUCCINYLCHOLINE 20 MG/ML, 10ML ONE (03:07)
[2021-06-13] MEDS ORDERED: PROPOFOL 10 MG/ML, 100ML IV ONE (03:07)
[2021-06-13] MEDS: ENOXAPARIN 60 MG/0.6 ML SQ SCH ×2 (06:34→17:48)
[2021-06-13] MEDS: METOPROLOL SUCCINATE 25 MG TAB.ER.24H PO SCH (06:35)
[2021-06-13] MEDS: ASPIRIN 81 MG TABLET EC PO SCH (06:35)
[2021-06-13] MEDS: ALBUTEROL-IPRATROPIUM MDI INH INH SCH ×3 (06:36→11:36)
[2021-06-13] MEDS: INSULIN LISPRO 100 UNITS/ML, PEN SQ-INSULIN SCH ×6 (07:00→21:26)
[2021-06-13] MEDS: LOSARTAN 25MG TABLET PO SCH (09:00)
[2021-06-13 09:53] LABS: MEAN CORPUSCULAR HGB CONC 34.3 g/dL (33.2-36.2); MEAN PLATELET VOLUME 8.5 fL (7.4-10.4); PLATELET COUNT 267 x10^3/uL (130-400); RED CELL DISTRIBUTION WIDTH 13.6 % (9.4-14.8)
[2021-06-13 10:07] LABS: ANION GAP 8 mmol/L (5-15); CALCIUM 8.9 mg/dL (8.5-10.1); CHLORIDE 99 mmol/L (98-107)
[2021-06-13 10:10] LABS: CREATININE 0.76 mg/dL (0.7-1.3)
[2021-06-13 10:27] LABS: <RBC MORPHOLOGY> NORMAL; BAND#(MANUAL) 0.44 x10^3/uL; BANDS%(MANUAL) 2 % (0-7); EOS#(MANUAL) 0.22 x10^3/uL (0.0-0.4); EOS% (MANUAL) 1 % (1-7); LYMPH#(MANUAL) 0.66 x10^3/uL (1-3.4); LYMPHS% (MANUAL) 3 % (22-44); MONOS% (MANUAL) 5 % (2-9); SEG#(MANUAL) 19.49 x10^3/uL (1.8-6.8); SEGS% (MANUAL) 89 % (42-75)
[2021-06-13 10:28] LABS: <PLATELET ESTIMATE> ADEQUATE; <PLT MORPHOLOGY> NORMAL PLT MORPH; PMNS WITH VACUOLES 1+
[2021-06-13] MEDS: PROPOFOL 100 ML IV PRN ×7 (11:00→22:38)
[2021-06-13] MEDS: CHOLECALCIFEROL 1,000 UNIT TABLET PO SCH (11:21)
[2021-06-13] MEDS: FUROSEMIDE 40 MG/4 ML IV SCH ×2 (11:23→21:10)
[2021-06-13] MEDS: POTASSIUM CHLORIDE 20 MEQ TAB.ER.PRT PO SCH (11:23)
[2021-06-13] MEDS: ZINC SULFATE 220 MG CAPSULE PO SCH (11:23)
[2021-06-13] MEDS: AMIODARONE 200 MG TABLET PO SCH (11:23)
[2021-06-13] MEDS: THIAMINE 100MG TABLET PO SCH ×2 (11:24→21:10)
[2021-06-13] MEDS: CLOPIDOGREL 75 MG TABLET PO SCH (11:24)
[2021-06-13] MEDS ORDERED: FENTANYL PF 100 MCG/2ML IVPush PRN (11:30)
[2021-06-13] MEDS ORDERED: FENTANYL PF 1,000 MCG in SODIUM CHLORIDE 0.9% 80 ML IV PRN (11:30)
[2021-06-13] MEDS: ACETAMINOPHEN 325 MG TABLET PO PRN (21:10)
[2021-06-13] MEDS: ATORVASTATIN 80 MG TABLET PO SCH (21:10)
[2021-06-13] MEDS: MIDAZOLAM HCL 50 MG in SODIUM CHLORIDE 0.9% 40 ML IV PRN (21:33)
[2021-06-14 00:04] LABS: MICROSCOPIC INDICATED
[2021-06-14] MEDS: PROPOFOL 100 ML IV PRN ×8 (00:36→23:17)
[2021-06-14] MEDS: INSULIN LISPRO 100 UNITS/ML, PEN SQ-INSULIN SCH ×7 (04:31→20:55)
[2021-06-14] MEDS: ENOXAPARIN 60 MG/0.6 ML SQ SCH ×2 (04:54→17:41)
[2021-06-14] MEDS: ASPIRIN 81 MG TABLET EC PO SCH (04:56)
[2021-06-14] MEDS: METOPROLOL SUCCINATE 25 MG TAB.ER.24H PO SCH (04:56)
[2021-06-14 05:28] LABS: MEAN CORPUSCULAR HEMOGLOBIN 30.4 pg (27.5-34.5); MEAN CORPUSCULAR HGB CONC 34.5 g/dL (33.2-36.2); PLATELET COUNT 280 x10^3/uL (130-400); RED BLOOD COUNT 4.94 x10^6/uL (4.38-5.82); RED CELL DISTRIBUTION WIDTH 13.9 % (9.4-14.8)
[2021-06-14 05:36] LABS: ALBUMIN 1.8 g/dL (3.4-5.0); ANION GAP 5 mmol/L (5-15); CALCIUM 8.8 mg/dL (8.5-10.1); CHLORIDE 95 mmol/L (98-107)
[2021-06-14 05:41] LABS: ALANINE AMINOTRANSFERASE 25 U/L (12-78); ALKALINE PHOSPHATASE 142 U/L (45-117); BILIRUBIN,TOTAL 1.4 mg/dL (0.2-1.0); CREATININE 1.35 mg/dL (0.7-1.3)
[2021-06-14 05:57] LABS: BAND#(MANUAL) 0.44 x10^3/uL; BANDS%(MANUAL) 2 % (0-7); LYMPH#(MANUAL) 1.31 x10^3/uL (1-3.4); LYMPHS% (MANUAL) 6 % (22-44); MONOS#(MANUAL) 1.09 x10^3/uL (0.3-2.7); MONOS% (MANUAL) 5 % (2-9); SEG#(MANUAL) 18.97 x10^3/uL (1.8-6.8); SEGS% (MANUAL) 87 % (42-75)
[2021-06-14 05:58] LABS: <PLATELET ESTIMATE> ADEQUATE; <PLT MORPHOLOGY> NORMAL PLT MORPH; <RBC MORPHOLOGY> NORMAL
[2021-06-14] MEDS: MIDAZOLAM HCL 50 MG in SODIUM CHLORIDE 0.9% 40 ML IV PRN ×2 (07:55→19:09)
[2021-06-14] MEDS: LOSARTAN 25MG TABLET PO SCH (09:00)
[2021-06-14] MEDS: AMIODARONE 200 MG TABLET PO SCH (09:32)
[2021-06-14] MEDS: CLOPIDOGREL 75 MG TABLET PO SCH (09:32)
[2021-06-14] MEDS: FUROSEMIDE 40 MG/4 ML IV SCH ×2 (09:32→20:54)
[2021-06-14] MEDS: CHOLECALCIFEROL 1,000 UNIT TABLET PO SCH (09:32)
[2021-06-14] MEDS: THIAMINE 100MG TABLET PO SCH (09:32)
[2021-06-14] MEDS: ZINC SULFATE 220 MG CAPSULE PO SCH (09:32)
[2021-06-14] MEDS: POTASSIUM CHLORIDE 20 MEQ TAB.ER.PRT PO SCH (09:40)
[2021-06-14] MEDS ORDERED: DILTIAZEM 5 MG/ML, 5ML ONE (12:09)
[2021-06-14] MEDS ORDERED: DILTIAZEM 5 MG/ML, 5ML IVPush ONE ×2 (12:30→22:30)
[2021-06-14] MEDS ORDERED: AMIODARONE 150 MG in DEXTROSE 5% 100 ML IV ONE (13:00)
[2021-06-14] MEDS: FILTER 0.22 MICRON IV PRN (13:10)
[2021-06-14] MEDS: AMIODARONE 450 MG in DEXTROSE 5% 241 ML IV PRN ×2 (13:51→20:58)
[2021-06-14] MEDS: ACETAMINOPHEN 325 MG TABLET PO PRN (15:19)
[2021-06-14] MEDS ORDERED: SENNA/DOCUSATE TABLET NG PRN (15:30)
[2021-06-14] MEDS ORDERED: SENNA 176 MG/5 ML ORAL SOL NG PRN (15:30)
[2021-06-14] MEDS ORDERED: BISACODYL 10 MG SUPP PR PRN (15:30)
[2021-06-14] MEDS ORDERED: LACTULOSE 20 GM/30 ML UDC NG PRN (15:30)
[2021-06-14] MEDS ORDERED: DEXTROSE 50%, 50ML SYRINGE IVPush PRN (15:30)
[2021-06-14] MEDS ORDERED: GLUCAGON 1 MG IM PRN (15:30)
--- NOTE | 2021-06-14 16:43 | NUR ---
IF Tube feed needed: Vital AF: 55 ml/hr on propofol, 65 ml/hr off propofol Addendum: 06/14/21 at [address] Amended: Links added.
[2021-06-14] MEDS: MEROPENEM 1 GM in SODIUM CHLORIDE 0.9% 100 ML IV SCH (17:46)
[2021-06-14] MEDS: LINEZOLID PMX 600MG/300ML 300 ML IV SCH (19:09)
[2021-06-14] MEDS: ATORVASTATIN 80 MG TABLET PO SCH (20:54)
[2021-06-14] MEDS: DILTIAZEM 125 MG in SODIUM CHLORIDE 0.9% 100 ML IV PRN (23:17)
[2021-06-15] MEDS ORDERED: SODIUM CHLORIDE 0.9%, 500ML IVBOLUS ONE (00:30)
[2021-06-15] MEDS: MEROPENEM 1 GM in SODIUM CHLORIDE 0.9% 100 ML IV SCH ×3 (01:11→22:08)
[2021-06-15] MEDS: PROPOFOL 100 ML IV PRN ×8 (01:12→19:39)
[2021-06-15] MEDS: NOREPINEPHRINE 8 MG in SODIUM CHLORIDE 0.9% 242 ML IV PRN ×3 (03:09→22:09)
[2021-06-15] MEDS: MIDAZOLAM HCL 50 MG in SODIUM CHLORIDE 0.9% 40 ML IV PRN ×3 (03:10→21:40)
[2021-06-15] MEDS: ACETAMINOPHEN 325 MG TABLET PO PRN ×2 (03:12→19:38)
[2021-06-15] MEDS: INSULIN LISPRO 100 UNITS/ML, PEN SQ-INSULIN SCH ×4 (03:40→19:42)
[2021-06-15] MEDS: ASPIRIN 81 MG TABLET CHEW NG SCH (05:09)
[2021-06-15] MEDS: LINEZOLID PMX 600MG/300ML 300 ML IV SCH ×2 (05:10→17:16)
[2021-06-15] MEDS: ENOXAPARIN 60 MG/0.6 ML SQ SCH ×2 (05:10→17:16)
[2021-06-15 06:43] LABS: MEAN CORPUSCULAR HEMOGLOBIN 29.9 pg (27.5-34.5); MEAN PLATELET VOLUME 9.1 fL (7.4-10.4); PLATELET COUNT 325 x10^3/uL (130-400); RED BLOOD COUNT 4.93 x10^6/uL (4.38-5.82); RED CELL DISTRIBUTION WIDTH 14.2 % (9.4-14.8)
[2021-06-15 06:52] LABS: ANION GAP 11 mmol/L (5-15); CHLORIDE 93 mmol/L (98-107); CREATININE 3.92 mg/dL (0.7-1.3)
[2021-06-15] MEDS: DILTIAZEM 125 MG in SODIUM CHLORIDE 0.9% 100 ML IV PRN (06:58)
[2021-06-15 07:00] LABS: D-DIMER 5.94 ug/mlFEU (0.00-0.52)
[2021-06-15 07:01] LABS: FIBRINOGEN > 713 mg/dL (200-340)
[2021-06-15 07:31] LABS: BAND#(MANUAL) 1.53 x10^3/uL; BANDS%(MANUAL) 5 % (0-7); LYMPH#(MANUAL) 1.84 x10^3/uL (1-3.4); LYMPHS% (MANUAL) 6 % (22-44); MONOS#(MANUAL) 0.61 x10^3/uL (0.3-2.7); MONOS% (MANUAL) 2 % (2-9); SEG#(MANUAL) 26.62 x10^3/uL (1.8-6.8); SEGS% (MANUAL) 87 % (42-75)
[2021-06-15 07:36] LABS: <PLATELET ESTIMATE> ADEQUATE; <PLT MORPHOLOGY> NORMAL PLT MORPH; <RBC MORPHOLOGY> NORMAL
[2021-06-15] MEDS: POTASSIUM CHLORIDE 20 MEQ TAB.ER.PRT PO SCH (08:00)
[2021-06-15] MEDS: LOSARTAN 25MG TABLET PO SCH (08:56)
[2021-06-15] MEDS: FUROSEMIDE 40 MG/4 ML IV SCH (09:00)
[2021-06-15] MEDS: CLOPIDOGREL 75 MG TABLET PO SCH (09:45)
[2021-06-15] MEDS: AMIODARONE 450 MG in DEXTROSE 5% 241 ML IV PRN (12:44)
[2021-06-15] MEDS: ATORVASTATIN 80 MG TABLET PO SCH (19:38)
[2021-06-16] MEDS: DILTIAZEM 125 MG in SODIUM CHLORIDE 0.9% 100 ML IV PRN ×3 (00:09→17:35)
[2021-06-16] MEDS: FILTER 0.22 MICRON IV PRN ×2 (00:09→17:33)
[2021-06-16] MEDS: AMIODARONE 450 MG in DEXTROSE 5% 241 ML IV PRN ×2 (00:09→17:34)
[2021-06-16] MEDS: PROPOFOL 100 ML IV PRN ×3 (03:45→10:13)
[2021-06-16] MEDS: INSULIN LISPRO 100 UNITS/ML, PEN SQ-INSULIN SCH ×4 (03:52→19:37)
[2021-06-16 04:29] LABS: MEAN CORPUSCULAR HEMOGLOBIN 29.7 pg (27.5-34.5); MEAN CORPUSCULAR HGB CONC 33.6 g/dL (33.2-36.2); MEAN PLATELET VOLUME 9.2 fL (7.4-10.4); PLATELET COUNT 257 x10^3/uL (130-400); RED BLOOD COUNT 4.42 x10^6/uL (4.38-5.82); RED CELL DISTRIBUTION WIDTH 14.3 % (9.4-14.8)
[2021-06-16 04:32] LABS: ANION GAP 15 mmol/L (5-15); CALCIUM 6.1 mg/dL (8.5-10.1); CHLORIDE 97 mmol/L (98-107)
[2021-06-16 04:35] LABS: CREATININE 5.06 mg/dL (0.7-1.3)
[2021-06-16] MEDS: ENOXAPARIN 60 MG/0.6 ML SQ SCH (05:04)
[2021-06-16] MEDS: ASPIRIN 81 MG TABLET CHEW NG SCH (05:05)
[2021-06-16] MEDS: LINEZOLID PMX 600MG/300ML 300 ML IV SCH ×2 (05:14→17:18)
[2021-06-16 05:42] LABS: <RBC MORPHOLOGY> NORMAL; BAND#(MANUAL) 1.19 x10^3/uL; BANDS%(MANUAL) 4 % (0-7); LYMPH#(MANUAL) 3.27 x10^3/uL (1-3.4); LYMPHS% (MANUAL) 11 % (22-44); MONOS#(MANUAL) 1.49 x10^3/uL (0.3-2.7); MONOS% (MANUAL) 5 % (2-9); SEG#(MANUAL) 23.76 x10^3/uL (1.8-6.8); SEGS% (MANUAL) 80 % (42-75)
[2021-06-16 05:43] LABS: <PLATELET ESTIMATE> ADEQUATE; <PLT MORPHOLOGY> NORMAL PLT MORPH
[2021-06-16] MEDS: MIDAZOLAM HCL 50 MG in SODIUM CHLORIDE 0.9% 40 ML IV PRN ×2 (06:32→18:30)
[2021-06-16] MEDS: LOSARTAN 25MG TABLET PO SCH (07:52)
[2021-06-16] MEDS: CLOPIDOGREL 75 MG TABLET PO SCH (10:13)
[2021-06-16] MEDS: INSULIN GLARGINE 100 UNITS/ML, PEN SQ-INSULIN SCH ×2 (10:18→19:38)
[2021-06-16] MEDS: MEROPENEM 1 GM in SODIUM CHLORIDE 0.9% 100 ML IV SCH ×2 (10:37→20:55)
[2021-06-16] MEDS ORDERED: SODIUM ZIRCONIUM CYCLOSILICATE 10 GM ONE (17:24)
[2021-06-16] MEDS: SODIUM ZIRCONIUM CYCLOSILICATE 5 GM PO SCH ×2 (17:33→19:34)
[2021-06-16] MEDS: ATORVASTATIN 80 MG TABLET PO SCH (19:34)
[2021-06-16] MEDS: NOREPINEPHRINE 32 MG in SODIUM CHLORIDE 0.9% 218 ML IV PRN (20:55)
[2021-06-17] MEDS: MIDAZOLAM HCL 50 MG in SODIUM CHLORIDE 0.9% 40 ML IV PRN ×3 (01:45→19:16)
[2021-06-17] MEDS: DILTIAZEM 125 MG in SODIUM CHLORIDE 0.9% 100 ML IV PRN (01:45)
[2021-06-17] MEDS: INSULIN LISPRO 100 UNITS/ML, PEN SQ-INSULIN SCH ×4 (03:26→21:33)
[2021-06-17 03:45] LABS: MEAN CORPUSCULAR HEMOGLOBIN 30.2 pg (27.5-34.5); MEAN CORPUSCULAR HGB CONC 34.5 g/dL (33.2-36.2); MEAN PLATELET VOLUME 9.5 fL (7.4-10.4); PLATELET COUNT 244 x10^3/uL (130-400); RED BLOOD COUNT 4.35 x10^6/uL (4.38-5.82); RED CELL DISTRIBUTION WIDTH 13.9 % (9.4-14.8)
[2021-06-17 03:55] LABS: ANION GAP 14 mmol/L (5-15); CALCIUM 7.5 mg/dL (8.5-10.1); CHLORIDE 91 mmol/L (98-107); CREATININE 7.43 mg/dL (0.7-1.3); TRIGLYCERIDES 198 mg/dL (50-200)
[2021-06-17 04:39] LABS: <PLATELET ESTIMATE> ADEQUATE; <PLT MORPHOLOGY> NORMAL PLT MORPH; <RBC MORPHOLOGY> NORMAL; BAND#(MANUAL) 1.22 x10^3/uL; BANDS%(MANUAL) 5 % (0-7); LYMPHS% (MANUAL) 7 % (22-44); MONOS#(MANUAL) 1.46 x10^3/uL (0.3-2.7); MONOS% (MANUAL) 6 % (2-9); SEG#(MANUAL) 19.93 x10^3/uL (1.8-6.8); SEGS% (MANUAL) 82 % (42-75)
[2021-06-17] MEDS: ASPIRIN 81 MG TABLET CHEW NG SCH (04:41)
[2021-06-17] MEDS: LINEZOLID PMX 600MG/300ML 300 ML IV SCH ×2 (08:08→19:16)
[2021-06-17] MEDS: CLOPIDOGREL 75 MG TABLET PO SCH (09:08)
[2021-06-17] MEDS: LOSARTAN 25MG TABLET PO SCH (09:08)
[2021-06-17] MEDS: INSULIN GLARGINE 100 UNITS/ML, PEN SQ-INSULIN SCH ×2 (09:17→21:33)
[2021-06-17] MEDS ORDERED: ENOXAPARIN 60 MG/0.6 ML SQ SCH (09:30)
[2021-06-17] MEDS: SODIUM ZIRCONIUM CYCLOSILICATE 5 GM PO SCH ×3 (09:58→21:33)
[2021-06-17] MEDS: MEROPENEM 1 GM in SODIUM CHLORIDE 0.9% 100 ML IV SCH ×2 (09:59→21:30)
[2021-06-17] MEDS: AMIODARONE 450 MG in DEXTROSE 5% 241 ML IV PRN (10:02)
[2021-06-17] MEDS: ACETAMINOPHEN 325 MG TABLET PO PRN (16:04)
[2021-06-17] MEDS: ATORVASTATIN 80 MG TABLET PO SCH (19:15)
[2021-06-18] MEDS: INSULIN LISPRO 100 UNITS/ML, PEN SQ-INSULIN SCH ×4 (03:53→21:44)
[2021-06-18 04:05] LABS: MEAN CORPUSCULAR HEMOGLOBIN 29.6 pg (27.5-34.5); MEAN CORPUSCULAR HGB CONC 33.7 g/dL (33.2-36.2); MEAN PLATELET VOLUME 8.9 fL (7.4-10.4); PLATELET COUNT 239 x10^3/uL (130-400); RED BLOOD COUNT 4.59 x10^6/uL (4.38-5.82); RED CELL DISTRIBUTION WIDTH 14.7 % (9.4-14.8)
[2021-06-18 04:13] LABS: ALANINE AMINOTRANSFERASE 16 U/L (12-78); ALBUMIN 1.6 g/dL (3.4-5.0); ANION GAP 12 mmol/L (5-15); CALCIUM 7.7 mg/dL (8.5-10.1); CHLORIDE 95 mmol/L (98-107); CREATININE 5.78 mg/dL (0.7-1.3)
[2021-06-18 04:16] LABS: ALKALINE PHOSPHATASE 122 U/L (45-117); BILIRUBIN,TOTAL 0.7 mg/dL (0.2-1.0); TOTAL PROTEIN 7.9 g/dL (6.4-8.2)
[2021-06-18 04:35] LABS: BAND#(MANUAL) 1.15 x10^3/uL; BANDS%(MANUAL) 5 % (0-7); LYMPHS% (MANUAL) 7 % (22-44); MONOS#(MANUAL) 2.29 x10^3/uL (0.3-2.7); MONOS% (MANUAL) 10 % (2-9); SEG#(MANUAL) 17.86 x10^3/uL (1.8-6.8); SEGS% (MANUAL) 78 % (42-75)
[2021-06-18 04:36] LABS: <PLATELET ESTIMATE> ADEQUATE; <RBC MORPHOLOGY> NORMAL
[2021-06-18 04:38] LABS: LARGE PLATELETS 1+
[2021-06-18] MEDS: ASPIRIN 81 MG TABLET CHEW NG SCH (06:27)
[2021-06-18] MEDS: NOREPINEPHRINE 32 MG in SODIUM CHLORIDE 0.9% 218 ML IV PRN (06:29)
[2021-06-18] MEDS: LOSARTAN 25MG TABLET PO SCH (09:00)
[2021-06-18] MEDS: SODIUM ZIRCONIUM CYCLOSILICATE 5 GM PO SCH (09:40)
[2021-06-18] MEDS: CLOPIDOGREL 75 MG TABLET PO SCH (09:40)
[2021-06-18] MEDS: INSULIN GLARGINE 100 UNITS/ML, PEN SQ-INSULIN SCH ×2 (09:48→21:43)
[2021-06-18] MEDS ORDERED: DIGOXIN 0.25 MG/ML, 2ML IVPush ONE (10:30)
[2021-06-18] MEDS: MEROPENEM 1 GM in SODIUM CHLORIDE 0.9% 100 ML IV SCH ×2 (11:05→21:43)
[2021-06-18] MEDS: RIVAROXABAN 15 MG TABLET PO SCH (11:05)
--- NOTE | 2021-06-18 11:47 | NUR ---
TUBE FEEDS: Vital HP: goal on propofol: 60 ml/hr, off propofol: 70 ml/hr Addendum: 06/18/21 at [address] Amended: Links added.
[2021-06-18] MEDS ORDERED: AMIODARONE 150 MG in DEXTROSE 5% 100 ML IV ONE (14:00)
[2021-06-18] MEDS: ATORVASTATIN 80 MG TABLET PO SCH (21:43)
[2021-06-18] MEDS: FILTER 0.22 MICRON IV PRN (22:42)
[2021-06-18] MEDS: AMIODARONE 450 MG in DEXTROSE 5% 241 ML IV PRN (22:42)
[2021-06-19] MEDS: INSULIN LISPRO 100 UNITS/ML, PEN SQ-INSULIN SCH ×4 (03:56→21:25)
[2021-06-19] MEDS: PROPOFOL 100 ML IV PRN ×2 (04:08→21:39)
[2021-06-19 04:16] LABS: MEAN CORPUSCULAR HEMOGLOBIN 29.3 pg (27.5-34.5); MEAN CORPUSCULAR HGB CONC 33.3 g/dL (33.2-36.2); MEAN PLATELET VOLUME 9.2 fL (7.4-10.4); PLATELET COUNT 240 x10^3/uL (130-400); RED BLOOD COUNT 4.84 x10^6/uL (4.38-5.82); RED CELL DISTRIBUTION WIDTH 14.4 % (9.4-14.8)
[2021-06-19 04:25] LABS: ALANINE AMINOTRANSFERASE 15 U/L (12-78); ALBUMIN 1.7 g/dL (3.4-5.0); ANION GAP 14 mmol/L (5-15); CALCIUM 8.3 mg/dL (8.5-10.1); CHLORIDE 95 mmol/L (98-107); CREATININE 5.68 mg/dL (0.7-1.3)
[2021-06-19 04:27] LABS: ALKALINE PHOSPHATASE 122 U/L (45-117); BILIRUBIN,TOTAL 0.8 mg/dL (0.2-1.0); TOTAL PROTEIN 8.3 g/dL (6.4-8.2)
[2021-06-19 05:23] LABS: <PLATELET ESTIMATE> ADEQUATE; <RBC MORPHOLOGY> NORMAL; BAND#(MANUAL) 1.37 x10^3/uL; BANDS%(MANUAL) 5 % (0-7); EOS#(MANUAL) 0.27 x10^3/uL (0.0-0.4); EOS% (MANUAL) 1 % (1-7); LARGE PLATELETS 1+; LYMPH#(MANUAL) 1.64 x10^3/uL (1-3.4); LYMPHS% (MANUAL) 6 % (22-44); METAMYELOCYTES# (MANUAL) 0.27 x10^3/uL (0-0); METAMYELOCYTES% (MANUAL) 1 % (0-1); MONOS#(MANUAL) 1.91 x10^3/uL (0.3-2.7); MONOS% (MANUAL) 7 % (2-9); SEG#(MANUAL) 21.84 x10^3/uL (1.8-6.8); SEGS% (MANUAL) 80 % (42-75)
[2021-06-19] MEDS: AMIODARONE 450 MG in DEXTROSE 5% 241 ML IV PRN (05:56)
[2021-06-19] MEDS: ASPIRIN 81 MG TABLET CHEW NG SCH (05:56)
[2021-06-19] MEDS: LINEZOLID 600 MG TABLET PO SCH ×2 (08:22→23:09)
[2021-06-19] MEDS: RIVAROXABAN 15 MG TABLET PO SCH (08:23)
[2021-06-19] MEDS: SODIUM ZIRCONIUM CYCLOSILICATE 5 GM PO SCH (08:23)
[2021-06-19] MEDS: CLOPIDOGREL 75 MG TABLET PO SCH (08:23)
[2021-06-19] MEDS ORDERED: METOCLOPRAMIDE 5 MG/ML, 2ML IV SCH (10:00)
[2021-06-19] MEDS: MEROPENEM 1 GM in SODIUM CHLORIDE 0.9% 100 ML IV SCH ×2 (10:03→21:13)
[2021-06-19] MEDS: INSULIN GLARGINE 100 UNITS/ML, PEN SQ-INSULIN SCH ×2 (10:03→21:22)
[2021-06-19] MEDS: ATORVASTATIN 80 MG TABLET PO SCH (21:12)
[2021-06-19] MEDS: METOCLOPRAMIDE 5 MG/ML, 2ML IV SCH (21:12)
[2021-06-19] MEDS: NOREPINEPHRINE 32 MG in SODIUM CHLORIDE 0.9% 218 ML IV PRN (21:13)
[2021-06-20] MEDS: FILTER 0.22 MICRON IV PRN (00:20)
[2021-06-20] MEDS: AMIODARONE 450 MG in DEXTROSE 5% 241 ML IV PRN ×3 (00:20→16:35)
[2021-06-20] MEDS: INSULIN LISPRO 100 UNITS/ML, PEN SQ-INSULIN SCH ×3 (03:55→16:39)
[2021-06-20] MEDS: METOCLOPRAMIDE 5 MG/ML, 2ML IV SCH ×2 (03:56→14:21)
[2021-06-20] MEDS: ACETAMINOPHEN 325 MG TABLET PO PRN (03:56)
[2021-06-20 04:57] LABS: BASOPHILS % (AUTO) 0 % (0-1); EOSINOPHILS % (AUTO) 1 % (1-7); LYMPHOCYTES % (AUTO) 4 % (22-44); MEAN CORPUSCULAR HEMOGLOBIN 29.5 pg (27.5-34.5); MEAN CORPUSCULAR HGB CONC 33.5 g/dL (33.2-36.2); MEAN PLATELET VOLUME 9.5 fL (7.4-10.4); MONOCYTES % (AUTO) 8 % (2-9); NEUTROPHILS % (AUTO) 88 % (42-75); PLATELET COUNT 223 x10^3/uL (130-400); RED BLOOD COUNT 4.75 x10^6/uL (4.38-5.82); RED CELL DISTRIBUTION WIDTH 14.5 % (9.4-14.8)
[2021-06-20 05:10] LABS: ALANINE AMINOTRANSFERASE 16 U/L (12-78); ALBUMIN 1.6 g/dL (3.4-5.0); ANION GAP 13 mmol/L (5-15); CALCIUM 8.6 mg/dL (8.5-10.1); CHLORIDE 95 mmol/L (98-107); CREATININE 5.82 mg/dL (0.7-1.3)
[2021-06-20 05:22] LABS: ALKALINE PHOSPHATASE 123 U/L (45-117); BILIRUBIN,TOTAL 0.8 mg/dL (0.2-1.0); TOTAL PROTEIN 8.4 g/dL (6.4-8.2); TRIGLYCERIDES 236 mg/dL (50-200)
[2021-06-20] MEDS: ASPIRIN 81 MG TABLET CHEW NG SCH (06:01)
[2021-06-20] MEDS: CLOPIDOGREL 75 MG TABLET PO SCH (08:41)
[2021-06-20] MEDS: LINEZOLID 600 MG TABLET PO SCH (08:41)
[2021-06-20] MEDS: SODIUM ZIRCONIUM CYCLOSILICATE 5 GM PO SCH (08:41)
[2021-06-20] MEDS: RIVAROXABAN 15 MG TABLET PO SCH (08:41)
[2021-06-20] MEDS: MEROPENEM 1 GM in SODIUM CHLORIDE 0.9% 100 ML IV SCH (08:41)
[2021-06-20] MEDS ORDERED: INSULIN GLARGINE 100 UNITS/ML, PEN SQ-INSULIN SCH (09:00)
[2021-06-20] MEDS ORDERED: DIGOXIN 0.25 MG/ML, 2ML IVPush ONE (09:00)
[2021-06-20] MEDS ORDERED: AMIODARONE 50 MG/ML, 3ML ONE (17:00)
[2021-06-20] MEDS ORDERED: EPINEPHRINE SYRINGE 0.1 MG/ML, 10ML ONE (17:00)
[2021-06-20] MEDS ORDERED: CODE BLUE RESPONSE XX ONE (17:00)
[2021-06-20] MEDS ORDERED: morphine SULFATE 10 MG/ML, 1ML IV ONE (17:30)
[2021-06-20] MEDS ORDERED: LORazepam 2 MG/ML, 1ML IVPush PRN (17:30)
[2021-06-20] MEDS ORDERED: morphine SULFATE 10 MG/ML, 1ML IVPush PRN (17:30)
[2021-06-20] MEDS ORDERED: LORazepam 2 MG/ML, 1ML IV ONE (18:00)
== END 2021-06-20 22:39 | DRG 870 ==
LOC: ED 23:30 → EDIP 05-31 02:08 → 3N 05-31 02:34 → CCU 06-04 08:33 → ICU 06-05 10:19
PROVIDERS: ADMIT Internal Medicine; ATTEND Internal Medicine
PROC: XW033E5 Introduction of Remdesivir Anti-infective into Peripheral Vein, Percutaneous Approach, New Technology Group 5 (ICD-10-PCS; 2021-05-31)
PROC: 5A12012 Performance of Cardiac Output, Single, Manual (ICD-10-PCS; 2021-05-31)
PROC: 5A09357 Assistance with Respiratory Ventilation, Less than 24 Consecutive Hours, Continuous Positive Airway Pressure (ICD-10-PCS; 2021-06-05)
PROC: 5A09357 Assistance with Respiratory Ventilation, Less than 24 Consecutive Hours, Continuous Positive Airway Pressure (ICD-10-PCS; 2021-06-06)
PROC: 5A09457 Assistance with Respiratory Ventilation, 24-96 Consecutive Hours, Continuous Positive Airway Pressure (ICD-10-PCS; 2021-06-07)
PROC: 5A09357 Assistance with Respiratory Ventilation, Less than 24 Consecutive Hours, Continuous Positive Airway Pressure (ICD-10-PCS; 2021-06-08)
PROC: 5A09357 Assistance with Respiratory Ventilation, Less than 24 Consecutive Hours, Continuous Positive Airway Pressure (ICD-10-PCS; 2021-06-09)
PROC: 5A09357 Assistance with Respiratory Ventilation, Less than 24 Consecutive Hours, Continuous Positive Airway Pressure (ICD-10-PCS; 2021-06-10)
PROC: 5A09457 Assistance with Respiratory Ventilation, 24-96 Consecutive Hours, Continuous Positive Airway Pressure (ICD-10-PCS; 2021-06-11)
PROC: 5A1955Z Respiratory Ventilation, Greater than 96 Consecutive Hours (ICD-10-PCS; principal; 2021-06-13)
PROC: 0BH17EZ Insertion of Endotracheal Airway into Trachea, Via Natural or Artificial Opening (ICD-10-PCS; 2021-06-13)
PROC: 0T9B70Z Drainage of Bladder with Drainage Device, Via Natural or Artificial Opening (ICD-10-PCS; 2021-06-13)
PROC: 02HV33Z Insertion of Infusion Device into Superior Vena Cava, Percutaneous Approach (ICD-10-PCS; 2021-06-15)
PROC: B548ZZA Ultrasonography of Superior Vena Cava, Guidance (ICD-10-PCS; 2021-06-15)
PROC: 02HV33Z Insertion of Infusion Device into Superior Vena Cava, Percutaneous Approach (ICD-10-PCS; 2021-06-16)
PROC: 5A1D70Z Performance of Urinary Filtration, Intermittent, Less than 6 Hours Per Day (ICD-10-PCS; 2021-06-16)
PROC: 5A1D70Z Performance of Urinary Filtration, Intermittent, Less than 6 Hours Per Day (ICD-10-PCS; 2021-06-17)
PROC: 5A1D70Z Performance of Urinary Filtration, Intermittent, Less than 6 Hours Per Day (ICD-10-PCS; 2021-06-18)
PROC: 5A1D70Z Performance of Urinary Filtration, Intermittent, Less than 6 Hours Per Day (ICD-10-PCS; 2021-06-19)
DX: A41.89 Other specified sepsis (principal); U07.1 COVID-19; J12.82 Pneumonia due to coronavirus disease 2019; J96.01 Acute respiratory failure with hypoxia; N17.0 Acute kidney failure with tubular necrosis; I21.9 Acute myocardial infarction, unspecified; E22.2 Syndrome of inappropriate secretion of antidiuretic hormone; D68.69 Other thrombophilia; I48.92 Unspecified atrial flutter; L02.419 Cutaneous abscess of limb, unspecified; Z68.41 Body mass index [BMI] 40.0-44.9, adult; R04.0 Epistaxis; E66.01 Morbid (severe) obesity due to excess calories; E11.65 Type 2 diabetes mellitus with hyperglycemia; E78.5 Hyperlipidemia, unspecified; E87.5 Hyperkalemia; G47.33 Obstructive sleep apnea (adult) (pediatric); I11.9 Hypertensive heart disease without heart failure; I27.20 Pulmonary hypertension, unspecified; I46.9 Cardiac arrest, cause unspecified; I48.0 Paroxysmal atrial fibrillation; I49.01 Ventricular fibrillation; Z79.02 Long term (current) use of antithrombotics/antiplatelets; Z79.82 Long term (current) use of aspirin; Z82.49 Family history of ischemic heart disease and other diseases of the circulatory system
CPT/HCPCS: 36415; 36556; 36573; 36600; 71045; 74018; 76770; 76937; 80048; 80053; 80061; 81001; 82040; 82306; 82330; 82803; 82962; 83036; 83615; 83735; 84100; 84145; 84443; 84478; 84484; 84550; 85025; 85379; 85384; 85520; 85651; 85730; 86140; 86705; 86706; 87040; 87070; 87081; 87086; 87205; 87340; 90935; 92950; 93005; 93306; 93970; 94002; 94003; 94660; 99285; G0378; J0456; J0583; J0696; J1100; J1644; J1650; J1940; J2020; J2185; J2250; J2704; J2997; J3010; J7060; C1751; J0282; J0330; J1160; J1642; J1815; J2060; J2270; J2765; J7040; J7050